=== PATIENT | female | born 1990 | race African-American/Black ===

== ENCOUNTER 2022-10-16 06:52 | Day surgery (SDC) | payer OTHER, SELFPAY ==
[2022-10-05 13:31] VITALS: BMI 35.7
--- NOTE | 2022-10-16 | PATH_ITS ---
[facility] Accession Number: [id number] No. of containers..01 Tissue . 01 Material submitted: . breast - RIGHT BREAST CYST . 01 Diagnosis: A. Right Breast Cyst, Excision: Epidermal inclusion cyst, with evidence of prior rupture. Breast ducts and lobules are not present. No evidence of malignancy. MRV 10/19/2022 1611 Local . 01 Electronically signed: . Char Carmen MD, Pathologist NPI- [id number] . 01 Gross description: . The specimen is received in formalin labeled with the patient's name, , and right breast cyst, and consists of a yellow to reaves, unoriented, presumed cystic structure weighting 1 gram and measuring 1.4 x 1.4 x 1.3 cm. The external surface is inked blue and sectioning reveals a smooth, thin-walled cystic structure filled with brown grumous material measuring 1.1 x 0.8 x 0.6 cm. The specimen is submitted entirely in cassettes A1-A2. The specimen was removed n 10/16/2022, time not provided, cold ischemic time cannot be calculated, total fixation time is approximately 32 hours. ([id number]) /DEVAN 10/17/2022 0949 Local . 01 Pathologist provided ICD-10: L72.0 . 01 CPT . 335149 Specimen Comment: A courtesy copy of this report has been sent to [phone] Performed at: 01 [facility] [address] [place] [address] [id number] MD Chema Holt MD Phone: [phone]
[2022-10-16 07:12] VITALS: BP 145/87; PULSE 109; RESP 18; TEMP 36.6; O2SAT 99; BMI 36.5
[2022-10-16] MEDS: LACTATED RINGERS 1,000 ML 84 ML IV (07:32)
--- NOTE | 2022-10-16 07:43 | PM.HP.1 ---
History of Present Illness History of Present Illness Date Patient Seen: 10/16/22 Time Patient Seen: 07:43 Chief complaint: SDC Narrative: Dimitrios is here for her excisional biopsy of right breast cyst. No changes since she was last seen in July. Patient History Medical History (Updated 10/05/22 @ 13:35 by Merline Guerrero RN) Anxiety Headache, migraine Sinus drainage Surgical History H/O bilateral breast reduction surgery History of tonsillectomy Family & Social History Social History: household members none Tobacco & Substance use: Smoking Status Never smoker alcohol intake current alcohol intake frequency 0-2 drinks per day Substance Use Type does not use Meds Home Medications and Allergies Home Medications Medication Instructions Recorded Confirmed Type azelaic acid 15 % topical gel 1 applic topical BID 08/09/22 08/09/22 History desonide 0.05 % topical gel 1 applic topical BID 08/09/22 08/09/22 History spironolactone 100 mg tablet 100 mg PO DAILY 08/09/22 08/09/22 History Allergies Allergy/AdvReac Type Severity Reaction Status Date / Time No Known Drug Allergies Allergy Verified 10/16/22 07:13 Exam Vital Signs (past 8 hours): - 10/16/22 07:12 Temperature 97.8 F Pulse Rate 109 H Respiratory Rate 18 Blood Pressure 145/87 H Pulse Oximetry 99 Oxygen Delivery Method Room Air Oxygen Delivery Method Room Air Narrative Exam Narrative: 2 cm right inferior breast cyst Assessment & Plan Assessment and plan (1) Solitary cyst of right breast: Status: Acute Plan Plan for excisional biopsy of right breast cyst. Reviewed risks and benefits and she would like to proceed Time Spent With Patient Critical Care time: I spent a total of [] minutes of critical care time on this patient's care today; this time is exclusive of procedural time.
--- NOTE | 2022-10-16 08:03 | SUR.OPER ---
Supine on padded OR bed, head on pillow, arms secured on padded arm boards at <90 degrees abduction, legs uncrossed, safety belt at thigh, tape over blanket over lower legs. Pt positioned per direction and supervision of Dr Moya.
[2022-10-16] MEDS: LIDOCAINE 1% W/EPI 20 ML INJ (08:05)
[2022-10-16 08:27] VITALS: BP 127/69; PULSE 104; RESP 13; TEMP 36.3; O2SAT 97
--- NOTE | 2022-10-16 08:29 | PM.OP.1 ---
Operative Date/Time/Diagnoses Date of procedure: 10/16/22 Time of procedure: 08:29 Pre-op diagnosis: Right breast mass Post-op diagnosis: same Procedure & Clinicians Procedure: Excisional biopsy of right breast mass Same procedure as scheduled: Yes Surgeon: Heladio Moya Anesthesia Type: General Operative Notes Procedure in detail: Anesthesia: General LMA by Rashid Yung MD The patient was brought to the operating room and placed on the table in the supine position with the right arm on an arm board. General anesthesia was induced via LMA. The right breast was prepped and draped in the usual fashion and a time-out was performed. Roughly 10 mL of lidocaine with epinephrine were injected into the skin and subcutaneous tissue over the mass. A 4 cm transverse incision was created over the palpable mass. Dissection was carried down to the mass which was in the subcutaneous adipose tissue. It was roughly spherical and proximally 1 cm. The mass was dissected from surrounding tissues using cautery. The wound was then closed in layers using multiple interrupted 3-0 Vicryl dermal sutures and a running 4-0 Monocryl subcuticular stitch. Steri-Strips and a bandage were applied. EBL: 5 mL Specimen: Right breast mass Post-operative Disposition: PACU
[2022-10-16 08:34] VITALS: BP 120/62; PULSE 92; RESP 12; O2SAT 98
[2022-10-16 08:43] VITALS: BP 122/65; PULSE 87; RESP 12; TEMP 36.3; O2SAT 95
== END 2022-10-16 09:02 | disposition home or self-care (01) ==
PROVIDERS: PCP Student in an Organized Health Care Education/Training Program; Referring Provider Surgery; Visit Provider Surgery
PROC: (CPT 19301; principal; 2022-10-16 07:45)
DX: L72.0 Epidermal cyst (principal)
CPT/HCPCS: 19120; 81025; J1100; J1885; J2250; J2405; J2704; J3010